=== PATIENT | female | born 1970 | race Asian ===

== ENCOUNTER 2017-01-11 15:59 | Emergency (ER) | payer OTHER ==
[2017-01-11] MEDS ORDERED: ONDANSETRON *ODT* 4 MG TABLET SL ONE (16:09)
--- NOTE | 2017-01-11 16:09 | PDOC ---
Rapid Medical Evaluation Medical Evaluation: Allergies Allergy/AdvReac Type Severity Reaction Status Date / Time No Known Allergies Allergy Verified 04/25/13 14:23 01/11/17 16:06 I have performed a brief in person evaluation of this patient. The patient presents with chief complaint of : headache vomiting since Am. PMD Dr. Beltran. daughter states she gets headaches often. no fever. Pertinent PE findings: I have ordered the following: urine preg, labs, IVF, benadryl 12.5mg, reglan 10mg, The patient will proceed to the ER for further evaluation. 01/11/17 16:17
[2017-01-11 16:10] VITALS: BP 120/61; PULSE 77; TEMP 98.1; BMI 17.4
[2017-01-11] MEDS ORDERED: SODIUM CHLORIDE 1,000 ML IV STA (16:10)
[2017-01-11] MEDS ORDERED: ACETAMINOPHEN 500 MG TABLET (FP) PO ONE (16:10)
[2017-01-11] MEDS ORDERED: METOCLOPRAMIDE HCL INJECTION 10 MG/2 ML VIAL IVPB ONE (16:19)
[2017-01-11 16:55] LABS: BASOPHIL 0.3 % (0-2.0); EOSINOPHIL 2.9 % (0-4.5); MCH 29.8 pg (25.7-33.7); MCHC 34.4 g/dl (32.0-36.0); MEAN CELL VOLUME 86.8 fl (80-96); MEAN PLT VOLUME 7.6 fl (7.5-11.1); NEUTROPHILS 80.9 % (42.8-82.8); PLATELET COUNT 297 K/MM3 (134-434); RDW 13.3 % (11.6-15.6); WHITE BLOOD COUNT 7.4 K/mm3 (4.0-10.0)
[2017-01-11 17:29] LABS: ALBUMIN 3.9 g/dl (3.4-5.0); ANION GAP 9 (8-16); C-REACTIVE PROTEIN 0.7 MG/DL (0.00-0.3); CALCIUM 8.9 mg/dL (8.5-10.1); CO2 28 mmol/L (21-32); CREATININE 0.6 mg/dL (0.55-1.02); GLUCOSE,RANDOM 136 mg/dL (74-106); SGOT/AST 18 U/L (15-37); SGPT/ALT 23 U/L (12-78)
[2017-01-11 17:31] LABS: ALK PHOS 95 U/L (45-117); BILIRUBIN,TOTAL 0.6 mg/dL (0.2-1.0); TOT PROT 6.9 g/dl (6.4-8.2)
[2017-01-11] MEDS ORDERED: ACETAMINOPHEN 325 MG TABLET (FP) ONE (18:21)
[2017-01-11] MEDS ORDERED: METOCLOPRAMIDE HCL INJECTION 10 MG/2 ML VIAL ONE (18:21)
--- NOTE | 2017-01-11 18:45 | PDOC ---
History of Present Illness - General Chief Complaint: Headache Stated Complaint: HEADACHES Time Seen by Provider: 01/11/17 16:07 - History of Present Illness Initial Comments: 01/11/17 18:40 46 yo F with no significant pmh who presents with PATEL. Patient reports ongoing, frequent, and worsening migraines beginning in 2016. States that she has been having intermittent bi-frontal PATEL's with absent retrobulbar radiation occurring weekly-biweekly for the past 2 years. Pain is pulsating in quality and asx. with nausea without vomiting. Pain worse in AM upon awakening. No identifable triggers, Denies photophobia, phonophobia, nuchal rigidity, neck stiffness, visual disturbances ( blurry vision at baseline), tinnnitus, hearing loss, fevers/chills, CP, C/D, abdominal pain, urinary complaints. Denies coffee intake. 3 cups/tea per day. Denies neurology workup in past or h/o CT HEAD, or head trauma. Past History - Past Medical History Allergies/Adverse Reactions: Allergies Allergy/AdvReac Type Severity Reaction Status Date / Time No Known Allergies Allergy Verified 01/11/17 16:07 Home Medications: Ambulatory Orders No Home Medications 0 dose .ROUTE UTDICT 04/25/13 COPD: No Thyroid Disease: No Other medical history: DENIES. - Immunization History Td Vaccination: No Immunization Up to Date: No - Suicide/Smoking/Psychosocial Hx Smoking Status: No Smoking History: Never smoked Number of Cigarettes Smoked Daily: 0 Hx Alcohol Use: No Review of Systems - Review of Systems Comments:: 01/11/17 18:51 GENERAL/CONSTITUTIONAL: No fever or chills. No weakness. HEAD, EYES, EARS, NOSE AND THROAT: No change in vision. No ear pain or discharge. No sore throat.- CARDIOVASCULAR: No chest pain or shortness of breath RESPIRATORY: No cough, wheezing, or hemoptysis. GASTROINTESTINAL: + Headache and nausea without vomiting. No diarrhea or constipation. GENITOURINARY: No dysuria, frequency, or change in urination. MUSCULOSKELETAL: No joint or muscle swelling or pain. No neck or back pain. SKIN: No rash NEUROLOGIC: No headache, vertigo, loss of consciousness, or change in strength/ sensation. ENDOCRINE: No increased thirst. No abnormal weight change HEMATOLOGIC/LYMPHATIC: No anemia, easy bleeding, or history of blood clots. ALLERGIC/IMMUNOLOGIC: No hives or skin allergy. *Physical Exam - Vital Signs Last Vital Signs Temp Pulse Resp BP Pulse Ox 98.1 F 77 19 120/61 95 01/11/17 16:08 01/11/17 16:08 01/11/17 16:08 01/11/17 16:08 01/11/17 16:08 - Physical Exam Comments: 01/11/17 18:53 GENERAL: Awake, alert, and fully oriented, in no acute distress HEAD: No signs of trauma, normocephalic, atraumatic EYES: PERRLA, EOMI, sclera anicteric, conjunctiva clear ENT:Hearing grossly normal, nares patent, oropharynx clear without exudates. Moist mucosa NECK: Normal ROM, supple, no lymphadenopathy, JVD, or masses LUNGS: No distress, speaks full sentences, clear to auscultation bilaterally HEART: Regular rate and rhythm, normal S1 and S2, no murmurs, rubs or gallops, peripheral pulses normal and equal bilaterally. EXTREMITIES : Normal inspection, Normal range of motion, no edema. No clubbing or cyanosis. NEUROLOGICAL: Cranial nerves II through XII grossly intact. Normal speech, normal gait, no focal sensorimotor deficits. Normal PATRICK. Absent dysmetria on FTN. Normal HTS. SKIN: Warm, Dry, normal turgor, no rashes or lesions noted. ED Treatment Course - LABORATORY CBC & Chemistry Diagram: 01/11/17 Unknown 01/11/17 Unknown - ADDITIONAL ORDERS Additional order review: Laboratory Results 01/11/17 01/11/17 Unknown 16:26 Sodium 141 Potassium 4.2 Chloride 104 Carbon Dioxide 28 Anion Gap 9 BUN 10 Creatinine 0.6 Creat Clearance w eGFR > 60 Random Glucose 136 H Calcium 8.9 Total Bilirubin 0.6 AST 18 ALT 23 Alkaline Phosphatase 95 C-Reactive Protein 0.7 H Total Protein 6.9 Albumin 3.9 Urine HCG, Qual Positive 01/11/17 Unknown RBC 4.35 MCV 86.8 MCHC 34.4 RDW 13.3 MPV 7.6 Neutrophils % 80.9 Lymphocytes % 12.3 Monocytes % 3.6 L Eosinophils % 2.9 Basophils % 0.3 - Medications Given in the ED: ED Medications Discontinued Medications Generic Name Dose Route Start Last Admin Trade Name Freq PRN Reason Stop Dose Admin Acetaminophen 1,000 mg 01/11/17 16:10 01/11/17 18:25 Tylenol - PO 01/11/17 16:11 1,000 mg ONCE ONE Administration Diphenhydramine HCl 12.5 mg 01/11/17 16:19 01/11/17 18:26 Benadryl Injection - IVPUSH 01/11/17 16:20 12.5 mg ONCE ONE Administration Sodium Chloride 1,000 mls @ 1,000 mls/hr 01/11/17 16:10 01/11/17 18:25 Normal Saline - IV 01/11/17 17:09 1,000 mls/hr ASDIR STA Administration Metoclopramide HCl 10 mg 01/11/17 16:19 01/11/17 18:26 Reglan Injection - IVPB 01/11/17 16:20 10 mg ONCE ONE Administration Ondansetron HCl 4 mg 01/11/17 16:09 01/11/17 17:44 Zofran Odt - SL 01/11/17 16:10 Not Given ONCE ONE Medical Decision Making - Medical Decision Making 01/11/17 18:54 46 yo F with no significant pmh who presents with PATEL. Patient reports ongoing, frequent, and worsening migraines beginning in 2016. States that she has been having intermittent bi-frontal PATEL's with absent retrobulbar radiation occurring weekly-biweekly for the past 2 years. Pain is pulsating in quality and asx. with nausea without vomiting. Pain worse in AM upon awakening. No identifable triggers, Denies photophobia, phonophobia, nuchal rigidity, neck stiffness, visual disturbances ( blurry vision at baseline), tinnnitus, hearing loss, fevers/chills, CP, C/D, abdominal pain, urinary complaints. Physical exam with no neurological deficits, and hemodynamically stable. Patient presentation consistent of migraine w/out aura. No formal neruologic workup for new onset migraines in adult attempted. Will consider imaging. Pain worse in AM, consistent with increased ICP when awakening. Consider space occupying lesiosn vs. KENYA. ED Course: 01/11/17 18:57 CBC, CMP, CRP, BHCG, CT HEAD NON CON 01/11/17 19:02 BCHG Urine: Pos Repeat serum HCG ordered 01/11/17 19:05 Patient signed out to Dr. Perales. *DC/Admit/Observation/Transfer - Referrals Referrals: Shaila Beltran MD [Primary Care Provider] - - Patient Instructions - Post Discharge Activity
[2017-01-11 19:25] LABS: ERYTHROCYTE SEDIMENTATION RATE 15 mm/hr (0-20)
--- NOTE | 2017-01-11 19:26 | PDOC ---
*Physical Exam - Vital Signs Last Vital Signs Temp Pulse Resp BP Pulse Ox 98.1 F 77 19 120/61 95 01/11/17 16:08 01/11/17 16:08 01/11/17 16:08 01/11/17 16:08 01/11/17 16:08 ED Treatment Course - LABORATORY CBC & Chemistry Diagram: 01/11/17 Unknown 01/11/17 Unknown - ADDITIONAL ORDERS Additional order review: Laboratory Results 01/11/17 01/11/17 01/11/17 Unknown Unknown 16:26 Sodium 141 Potassium 4.2 Chloride 104 Carbon Dioxide 28 Anion Gap 9 BUN 10 Creatinine 0.6 Creat Clearance w eGFR > 60 Random Glucose 136 H Calcium 8.9 Total Bilirubin 0.6 AST 18 ALT 23 Alkaline Phosphatase 95 C-Reactive Protein 0.7 H Total Protein 6.9 Albumin 3.9 Beta HCG, Quant 16.1 Urine HCG, Qual Positive 01/11/17 Unknown RBC 4.35 MCV 86.8 MCHC 34.4 RDW 13.3 MPV 7.6 Neutrophils % 80.9 Lymphocytes % 12.3 Monocytes % 3.6 L Eosinophils % 2.9 Basophils % 0.3 - Medications Given in the ED: ED Medications Discontinued Medications Generic Name Dose Route Start Last Admin Trade Name Freq PRN Reason Stop Dose Admin Acetaminophen 1,000 mg 01/11/17 16:10 01/11/17 18:25 Tylenol - PO 01/11/17 16:11 1,000 mg ONCE ONE Administration Diphenhydramine HCl 12.5 mg 01/11/17 16:19 01/11/17 18:26 Benadryl Injection - IVPUSH 01/11/17 16:20 12.5 mg ONCE ONE Administration Sodium Chloride 1,000 mls @ 1,000 mls/hr 01/11/17 16:10 01/11/17 18:25 Normal Saline - IV 01/11/17 17:09 1,000 mls/hr ASDIR STA Administration Metoclopramide HCl 10 mg 01/11/17 16:19 01/11/17 18:26 Reglan Injection - IVPB 01/11/17 16:20 10 mg ONCE ONE Administration Ondansetron HCl 4 mg 01/11/17 16:09 01/11/17 17:44 Zofran Odt - SL 01/11/17 16:10 Not Given ONCE ONE Medical Decision Making - Medical Decision Making 01/11/17 19:58 Care taken over from Dr. Adams. Patient reports headache has been on and off for last year or two, is constant in nature, sometimes worse in the morning, and associated with nausea and occasional vomiting. Ms. Mcqueen had a positive upreg and positive confirmatory serum hcg but denies any sexual activity within the last 2 years. Is sure she cannot be and also reports she has not had a menstrual cycle in the last 2 years. Patient agreed she will sign off consent for Head CT given lab HCG results as she reports she cannot be . Given this will go ahead with head CT. Discussed with General Manager In Training who has agreed to perform test given above. 01/11/17 21:57 Patient reports relief from headache after fluids and IV medications. Head CT negative for acute pathology. Suspect etiology of headaches migrainous in nature. Will d/c to home with instructions to f/u outpatient with neurology. *DC/Admit/Observation/Transfer Diagnosis at time of Disposition: Migraine Qualifiers: Migraine type: unspecified Status migrainosus presence: without status migrainosus Intractability: not intractable Qualified Code(s): G43.909 - Migraine, unspecified, not intractable, without status migrainosus - Referrals Referrals: Shaila Beltran MD [Primary Care Provider] - Merritt Kruger MD [Staff Physician] - - Patient Instructions Printed Discharge Instructions: DI for Migraine Additional Instructions: Please return to the Emergency Room if any increase or return of pain, fever, or other concerning symptoms. Follow-up with neurology in 1-2 days as discussed. - Post Discharge Activity
--- NOTE | 2017-01-11 19:41 | PDOC ---
Attending Attestation - Resident Resident Name: Catalino Perales - ED Attending Attestation I have performed the following: I have examined & evaluated the patient, The case was reviewed & discussed with the resident, I agree w/resident's findings & plan, Exceptions are as noted - HPI HPI: 01/11/17 19:40 46yo F with no sig PMH p/w intermittent headache for 1 year. Headache is global , occurs weekly, resolves with advil a/w photophobia and nausea. No neck stiffness, fevers, chills, vomiting, focal weakness or numbness. LMP 2 years ago, states she has not been sexually active for 2 years since the of her from a stroke. Daughter states they have been meaning to get the headache evaluated at the hospital for a few months but only got a chance to today. PMD is Dr. Beltran but patient is no comfortable with a male physician. There is no change in the severity or quality of her headache today. - Physicial Exam PE: 01/11/17 20:06 GENERAL: Awake, alert, and fully oriented, in no acute distress HEAD: No signs of trauma EYES: PERRLA, EOMI, sclera anicteric, conjunctiva clear ENT: Auricles normal inspection, hearing grossly normal, nares patent, oropharynx clear without exudates. Moist mucosa NECK: Normal ROM, supple, no lymphadenopathy, JVD, or masses LUNGS: Breath sounds equal, clear to auscultation bilaterally. No wheezes, and no crackles HEART: Regular rate and rhythm, normal S1 and S2, no murmurs, rubs or gallops ABDOMEN: Soft, nontender, normoactive bowel sounds. No guarding, no rebound. No masses EXTREMITIES: Normal range of motion, no edema. No clubbing or cyanosis. No cords, erythema, or tenderness NEUROLOGICAL: Normal speech, cranial nerves intact, negative pronator drift, 5/ 5 strength in all 4 extremities, normal sensation to light touch in all 4 extremities, normal cerebellar exam, normal gait, normal reflexes and tone SKIN: Warm, Dry, normal turgor, no rashes or lesions noted. - Medical Decision Making 01/11/17 20:06 46-year-old female with no significant past medical history presents with 1 year of intermittent headache. Vitals are unremarkable. Exam is unremarkable, patient is neurologically intact. Patient does not have any red flags including no weakness or numbness, no stiff neck, no fevers or chills. Her headache was of gradual onset. Given the global distribution of the headache it's likely tension headache versus migraine. Will treat the headache. There is a chance this could be a mass occupying lesion and thus will obtain a CT scan to evaluate although this is not the most sensitive test. Discussed with patient and her family that she must see a PMD and a neurologist for work up of her headaches. 01/11/17 20:13 Labs unremarkable. Headache is improved after IV tylenol, reglan, benadryl, zofran. Beta hCG is positive. Beta Quant is 16. Upon discussion with the patient, she states she has not had sexual intercourse in 2 years, that she also has not had her menstrual cycle in 2 years since the of her . She states there is no chance she could be . A beta quantitative 16 is consistent with a very early , but it's possible that it's from another source. Pt is adamant that she is not and consents to CTH. 01/11/17 22:18 CTH negative. Headache completely resolved with meds. Discussed results with patient and her family. Also, discussed the slightly elevated HCG. In concert with the patient being amenorrheic for 2 years at 46, I recommended close follow up with a PMD and [facility]EL ESTIMATOR for f/u labs. I discussed that an elevated HCG in the absence of can be a result of a mass lesion, possibly cancerous and stressed the importance of f/u for this reason. The patient and her family expressed understanding and requested referral to a female PMD and STEEL ESTIMATOR which we provided. With regards to headache, I recommended f/u with neurology and also provided a referral (family okay with a male) I discussed the physical exam findings, ancillary test results and final diagnoses with the patient. I answered all of the patient's questions. The patient was satisfied with the care received and felt comfortable with the discharge plan and treatment plan. The patient will call their primary care physician within 24 hours to arrange follow-up and will return to the Emergency Department with any new, persistent or worsening symptoms.
== END 2017-01-11 22:52 | disposition home or self-care (01) ==
LOC: JERFT 15:59 → JER 15:59
PROC: 3E033GC Introduction of Other Therapeutic Substance into Peripheral Vein, Percutaneous Approach (ICD-10-PCS; principal; 2017-01-11)
PROC: 3E0337Z Introduction of Electrolytic and Water Balance Substance into Peripheral Vein, Percutaneous Approach (ICD-10-PCS; 2017-01-11)
DX: G43.909 Migraine, unspecified, not intractable, without status migrainosus (principal)
CPT/HCPCS: 36415; 70450-TC; 80053; 84702; 84703; 85025; 85651; 86140; 96361; 96374; 96375; 99282-25